=== PATIENT | female | born 1985 | race Hispanic/Latino ===

== ENCOUNTER 2017-03-17 16:09 | Inpatient (IN) ==
[2017-03-17] MEDS ORDERED: ZOFRAN IV PRN (16:13)
[2017-03-17] MEDS ORDERED: PEPCID PO ONE (16:13)
[2017-03-17] MEDS ORDERED: CYTOTEC PO ONE ×2 (16:13→18:45)
[2017-03-17] MEDS ORDERED: REGLAN PO ONE (16:13)
[2017-03-17] MEDS ORDERED: STADOL IV PRN ×2 (16:13)
[2017-03-17] MEDS ORDERED: PEPCID PO PRN (16:13)
[2017-03-17] MEDS ORDERED: BRETHINE SUBQ PRN (16:13)
[2017-03-17] MEDS ORDERED: KEFZOL 1 GM/D5W 1 GM/50 ML IVPB IV PRN (16:13)
[2017-03-17] MEDS ORDERED: PITOCIN 30 UNITS/LR 30 UNITS/500 ML IV.SOLN IV SCH (16:13)
[2017-03-17] MEDS ORDERED: LR 500 ML IV ONE (16:13)
[2017-03-17] MEDS ORDERED: TYLENOL PO PRN (16:13)
[2017-03-17] MEDS ORDERED: PEPCID IV PRN (16:13)
[2017-03-17] MEDS ORDERED: AMBIEN PO PRN (16:13)
[2017-03-17] MEDS: LR 1,000 ML IV ONE (18:28)
[2017-03-17 18:43] VITALS: BP 130/77
[2017-03-17 18:49] LABS: MANUAL DIFF NEEDED? NO
[2017-03-17 18:52] LABS: BASO% 0.2 % (0.0-0.8); EOS# 0.13 X1000 (0.0-0.7); EOS% 1.1 % (0.0-10.0); HEMATOCRIT 38.2 % (37.0-47.0); HEMOGLOBIN 12.4 g/dL (12.0-16.0); IMM GRAN# 0.03 X1000 (0.0-0.04); IMM GRAN% 0.3 % (0.0-0.5); LYMPH# 1.75 X1000 (1.2-3.4); LYMPH% 15.4 % (20.5-51.1); MCH 28.7 PG (27-31); MCHC 32.5 g/dL (33-37); MCV 88.4 FL (81-99); MONO# 0.77 X1000 (0.11-0.59); MONO% 6.8 % (1.7-9.3); MPV 10.5 FL (7.4-10.4); NEUT% 76.2 % (42.2-75.2); PLT 243 X1000 (130-400); RBC 4.32 XMIL (4.2-5.4)
[2017-03-17] MEDS ORDERED: CYTOTEC PO SCH ×2 (20:17→22:20)
[2017-03-17] MEDS ORDERED: PHENERGAN IV ONE (21:46)
[2017-03-17] MEDS ORDERED: SODIUM CHLORIDE 0.9% INJ ONE (21:46)
[2017-03-18] MEDS ORDERED: PHENERGAN ONE (00:56)
[2017-03-18] MEDS: STADOL IV PRN ×2 (01:05→02:59)
[2017-03-18] MEDS: LR 1,000 ML IV ONE (03:00)
[2017-03-18] MEDS ORDERED: PITOCIN 20 UNITS/LR 20 UNITS/1,000 ML IV.SOLN ONE (03:19)
[2017-03-18] MEDS ORDERED: PITOCIN IM PRN (05:26)
[2017-03-18] MEDS ORDERED: MINERAL OIL PO PRN (05:26)
[2017-03-18] MEDS ORDERED: BENADRYL IV PRN (05:26)
[2017-03-18] MEDS ORDERED: PERCOCET-5 PO PRN (05:26)
[2017-03-18] MEDS ORDERED: M-M-R II VACCINE SUBQ ONE (05:26)
[2017-03-18] MEDS ORDERED: HYDROXYZINE IM PRN (05:26)
[2017-03-18] MEDS ORDERED: PITOCIN 20 UNITS/LR 20 UNITS/1,000 ML IV.SOLN IV SCH (05:26)
[2017-03-18] MEDS ORDERED: PITOCIN 30 UNITS/LR 30 UNITS/500 ML IV.SOLN IV ONE (05:26)
[2017-03-18] MEDS ORDERED: HYDROXYZINE PO PRN (05:26)
[2017-03-18] MEDS ORDERED: BENADRYL PO PRN (05:26)
[2017-03-18] MEDS ORDERED: XYLOCAINE-MPF 1% INJ PRN (05:26)
[2017-03-18] MEDS ORDERED: CYTOTEC PO PRN (05:26)
[2017-03-18] MEDS ORDERED: NORCO-5 PO PRN (05:26)
[2017-03-18] MEDS ORDERED: AMBIEN PO PRN (05:26)
[2017-03-18] MEDS ORDERED: PERCOCET-10 PO PRN (05:26)
[2017-03-18] MEDS ORDERED: PERI MEDS (DERMOPLAST/NUPERCAINAL/TUCKS) MISC PRN (05:26)
[2017-03-18] MEDS ORDERED: NORCO-10 PO PRN (05:26)
[2017-03-18] MEDS ORDERED: MOTRIN PO PRN (05:26)
[2017-03-18] MEDS ORDERED: BOOSTRIX VACCINE IM ONE (05:26)
--- NOTE | 2017-03-18 08:14 | OPERATIVE NOTE ---
PROCEDURE DATE : 03/18/2017 DELIVERY NOTE DELIVERING PHYSICIAN: Reji Guo MD TYPE OF DELIVERY: Spontaneous controlled vaginal delivery. ANESTHESIA: IV sedation. FINDINGS: At 0316, a 2 pound 13 ounce stillborn male was delivered. There were no gross abnormalities. SUMMARY: Mimi Downing is a 31-year-old 2, para 1-0-0-1 at almost 33 weeks gestation. She was seen in the office today and diagnosed with intrauterine demise. Her care had been unremarkable to that point. The ultrasound showed no gross abnormalities, and there was no fluid noted. The patient was admitted to the hospital and started on Cytotec by mouth. She went into labor and quickly delivered a male infant with, again, no gross abnormalities, no evidence of a cord accident. Placenta spontaneously delivered at 3:40 a.m. It was intact. Blood loss was approximately 200 mL. There were no tears or episiotomy. The patient remained in the LDR recovering without difficulty. Will send the placenta to Pathology. cc: Reji Guo MD
[2017-03-18] MEDS ORDERED: PRECARE PO SCH (09:00)
[2017-03-18 10:38] LABS: MANUAL DIFF NEEDED? NO
[2017-03-18 10:57] LABS: BASO% 0.2 % (0.0-0.8); EOS# 0.04 X1000 (0.0-0.7); EOS% 0.3 % (0.0-10.0); HEMATOCRIT 33.6 % (37.0-47.0); HEMOGLOBIN 11.1 g/dL (12.0-16.0); IMM GRAN# 0.02 X1000 (0.0-0.04); IMM GRAN% 0.2 % (0.0-0.5); LYMPH# 1.71 X1000 (1.2-3.4); LYMPH% 14.8 % (20.5-51.1); MCH 29.6 PG (27-31); MCV 89.6 FL (81-99); MONO# 0.76 X1000 (0.11-0.59); MONO% 6.6 % (1.7-9.3); MPV 10.2 FL (7.4-10.4); NEUT% 77.9 % (42.2-75.2); PLT 211 X1000 (130-400); RBC 3.75 XMIL (4.2-5.4)
[2017-03-18 11:58] LABS: RPR REACTIVE (NONREACTIVE)
--- NOTE | 2017-03-18 14:10 | DISCHARGE SUMMARY ---
ADMISSION DATE: 03/17/2017 DISCHARGE DATE: 03/18/2017 ADMIT DIAGNOSIS: at 33 weeks with intrauterine demise. DISCHARGE DIAGNOSIS: at 33 weeks with intrauterine demise. PROCEDURE: Vaginal delivery. CONDITION: Stable. DIET: As tolerated. ACTIVITY: Routine . FOLLOW UP: Follow up in [address] Guo. DISCHARGE MEDICATIONS: [place] 5 mg, Motrin 800 mg, stool softeners, and she is to continue her vitamins with iron. HOSPITAL COURSE: Please refer to the records and delivery note. She was admitted yesterday with an IUFD, received Cytotec, and delivered early this morning. The did not appear abnormal in any way. At this point the patient feels like she has recovered sufficiently and desires discharge. PHYSICAL EXAMINATION: Vital Signs: Her vital signs reveal a temp of 99.1, pulse 97, and blood pressure 130/78. She is 176 pounds; 5 feet 1 inch. Neck: Supple. Lungs: Clear. Heart: Regular with sinus rhythm. Abdomen: Soft. The uterus is firm. Pelvic: Deferred. Extremities: No cyanosis, clubbing, or edema of her extremities. LABORATORY DATA: Hemoglobin is 11.1. DISCHARGE INSTRUCTIONS: We will discharge with the above instructions. cc: MD Reji Cortes MD
[2017-03-18] MEDS ORDERED: PERICOLACE PO SCH (21:00)
== END 2017-03-18 14:25 | disposition home or self-care (01) ==
LOC: P.LD 16:09
PROVIDERS: ADMIT Obstetrics & Gynecology; ATTEND Obstetrics & Gynecology